=== PATIENT | male | born 1940 | race Caucasian/White ===

== ENCOUNTER 2016-06-26 08:34 | Day surgery (SDC) | payer MEDICARE, MEDICAID ==
[~2016-06-26] VITALS: Ht 157.5 cm; Wt 72.0 kg
[~2016-06-26 08:34] MED LIST: ALPR0.254 PO; ATEN25TA PO; CAPE500T24 PO; ENOX30SY4 SQ; HYDR-3144 PO; HYDR12.53 PO; LISI-468 PO; LISI40TA PO; MEGE400O2 PO; MERO1PIG IV; MIDO5TAB PO; ONDA4SOL2 PO; ONDA8TAB9 PO; OXYC1TAB7 PO; OXYC5SOL8 PO; PANT40TA3 PO; PREG75CA PO; PROC10TA78 PO; PROM25TA10 PO; RIVA15TA PO; TRAZ50TA18 PO; VANC1VIA3 IV; Vancomycin Per Pharmacy MC
[2016-06-26] MEDS ORDERED: RIVA20TA PO (09:28)
[2016-06-26] MEDS ORDERED: HYDR-3144 PO (09:37)
[2016-06-26] MEDS ORDERED: TAMS0.4C2 PO (09:37)
[2016-06-26] MEDS ORDERED: ALPR0.254 PO (09:37)
[2016-06-26 09:43] VITALS: BP 133/86
[2016-06-26] MEDS ORDERED: LACTATED RINGERS 1,000 ML IV SCH ×2 (10:02→11:40)
[2016-06-26] MEDS ORDERED: FENTANYL PF 250 MCG/5ML ONE (10:48)
[2016-06-26] MEDS ORDERED: ONDANSETRON 2MG/ML, 2ML ONE (10:59)
[2016-06-26] MEDS ORDERED: PROPOFOL 10 MG/ML, 20ML ONE (10:59)
[2016-06-26] MEDS ORDERED: PHENYLEPHRINE 10 MG/ML ONE (10:59)
[2016-06-26] MEDS ORDERED: SUCCINYLCHOLINE 20 MG/ML, 10ML ONE (10:59)
[2016-06-26] MEDS ORDERED: DEXAMETHASONE 4 MG/ML, 1ML ONE (10:59)
[2016-06-26] MEDS ORDERED: BUPIVACAINE/PF-EPI 0.25% 1:200K ONE (11:23)
[2016-06-26] MEDS ORDERED: PROMETHAZINE 25 MG/ML, 1ML IV PRN (11:30)
[2016-06-26] MEDS ORDERED: ONDANSETRON 2MG/ML, 2ML IVPush PRN ×2 (11:30→12:00)
[2016-06-26] MEDS ORDERED: LABETALOL 5MG/ML, 20ML IV PRN (11:30)
[2016-06-26] MEDS ORDERED: HYDROmorphone 1 MG/ML, 1ML IV PRN (11:30)
[2016-06-26] MEDS ORDERED: OXYcodone 5 MG/5 ML ORAL.SOL UDC PO PRN ×2 (11:30→12:00)
[2016-06-26] MEDS ORDERED: ALBUTEROL/IPRATROPIUM 2.5MG/0.5MG, 3 ML NPPB PRN (11:30)
[2016-06-26] MEDS ORDERED: hydrALAzine 20 MG/ML, 1ML IV PRN (11:30)
[2016-06-26] MEDS ORDERED: ACETAMINOPHEN 325 MG TABLET PO PRN (11:30)
[2016-06-26] MEDS ORDERED: MIDAZOLAM 1 MG/ML, 2ML IV PRN (11:30)
[2016-06-26] MEDS ORDERED: MEPERIDINE/PF 25MG/0.5ML IVPush PRN (11:30)
[2016-06-26] MEDS ORDERED: FENTANYL PF 100 MCG/2ML IV PRN (11:30)
[2016-06-26] MEDS ORDERED: NEOSPORIN OINT, 15GM ONE (11:35)
[2016-06-26] MEDS ORDERED: DIPHENHYDRAMINE 50 MG/ML, 1ML IVPush PRN (12:00)
[2016-06-26] MEDS ORDERED: HYDROmorphone 2 MG/ML, 1ML IVPush PRN (12:00)
[2016-06-26] MEDS ORDERED: ACETAMINOPHEN 650 MG/20.3 ML UDC ONE (12:07)
[2016-06-26] MEDS ORDERED: OXYcodone 5 MG/5 ML ORAL.SOL UDC ONE (12:08)
== END 2016-06-26 14:00 | disposition home or self-care (01) ==
LOC: OUT 08:34
PROVIDERS: ATTEND Surgery
DX: T81.89XA Other complications of procedures, not elsewhere classified, initial encounter (principal); Z93.2 Ileostomy status; Z85.048 Personal history of other malignant neoplasm of rectum, rectosigmoid junction, and anus; I10 Essential (primary) hypertension; Z87.891 Personal history of nicotine dependence; Z90.49 Acquired absence of other specified parts of digestive tract; Y83.8 Other surgical procedures as the cause of abnormal reaction of the patient, or of later complication, without mention of misadventure at the time of the procedure
CPT/HCPCS: 13160; J0330; J1100; J2370; J2405; J2704; J3010; J7120

== ENCOUNTER 2016-07-06 23:21 | Emergency (ER) | payer MEDICARE, MEDICAID ==
[~2016-07-06] VITALS: Ht 162.6 cm; Wt 71.9 kg
[~2016-07-06 23:21] MED LIST changes: +RIVA20TA PO; +TAMS0.4C2 PO
[2016-07-07] MEDS ORDERED: ONDANSETRON 2MG/ML, 2ML IVPush ONE (00:30)
[2016-07-07] MEDS ORDERED: OMNIPAQUE 350 MG/ML, 100ML BOTTLE ONE (00:30)
[2016-07-07] MEDS ORDERED: MORPHINE SULFATE 4 MG/ML, 1ML IVPush PRN (00:30)
[2016-07-07] MEDS ORDERED: MORPHINE SULFATE 4 MG/ML, 1ML ONE (00:33)
[2016-07-07] MEDS ORDERED: ONDANSETRON 2MG/ML, 2ML ONE (00:33)
[2016-07-07 00:45] LABS: BLOOD UREA NITROGEN 14 mg/dL (7-18)
[2016-07-07 00:49] LABS: IS PT STATUS REG ER OR PRE ER? YES
[2016-07-07] MEDS ORDERED: OXYC1TAB7 PO (01:42)
[2016-07-07 03:11] VITALS: BP 152/64
== END 2016-07-07 03:14 | disposition home or self-care (01) ==
LOC: ED 23:59
DX: R07.89 Other chest pain (principal); C78.5 Secondary malignant neoplasm of large intestine and rectum; Z85.118 Personal history of other malignant neoplasm of bronchus and lung
CPT/HCPCS: 36415; 71275; 80048; 82040; 84484; 85025; 93005; 96374; 96375; 99285; J2405

== ENCOUNTER 2016-11-19 07:30 | Emergency (ER) | payer MEDICARE, MEDICAID ==
[~2016-11-19] VITALS: Ht 152.4 cm; Wt 74.1 kg
[~2016-11-19 07:30] MED LIST changes: -HYDR-3144 PO; +HYDR-3245 PO
[2016-11-19] MEDS ORDERED: ALBUTEROL/IPRATROPIUM 2.5MG/0.5MG, 3 ML NPPB ONE (08:30)
[2016-11-19] MEDS ORDERED: ALBUTEROL/IPRATROPIUM 2.5MG/0.5MG, 3 ML ONE (08:44)
[2016-11-19 09:02] LABS: BLOOD UREA NITROGEN 29 mg/dL (7-18)
[2016-11-19 09:03] LABS: HEMOGLOBIN 14.3 g/dL (13.7-18.0); WHITE BLOOD COUNT 19.4 x10^3/uL (3.4-10)
[2016-11-19 09:16] VITALS: BP 122/90
[2016-11-19 09:24] LABS: DIFF TOTAL CELLS COUNTED 100 CELL DIFF
[2016-11-19 09:26] LABS: ANISOCYTOSIS 1+; VERIFY COUNTS? YES
== END 2016-11-19 10:04 | disposition home or self-care (01) ==
LOC: ED 09:43
DX: J20.8 Acute bronchitis due to other specified organisms (principal); C34.90 Malignant neoplasm of unspecified part of unspecified bronchus or lung; C18.9 Malignant neoplasm of colon, unspecified; Z79.01 Long term (current) use of anticoagulants; Z85.048 Personal history of other malignant neoplasm of rectum, rectosigmoid junction, and anus; Z87.891 Personal history of nicotine dependence; Z92.21 Personal history of antineoplastic chemotherapy
CPT/HCPCS: 36415; 71020; 80048; 82040; 85025; 93005; 94640; 99285; J7512; J7620

== ENCOUNTER 2016-12-13 06:54 | Inpatient (IN) | payer MEDICARE, MEDICAID ==
[~2016-12-13] VITALS: Ht 165.1 cm; Wt 79.6 kg
[2016-12-13] MEDS ORDERED: SODIUM CHLORIDE 0.9% 1,000ML IVBOLUS ONE ×2 (07:30→09:30)
[2016-12-13] MEDS ORDERED: ALBUTEROL SULFATE 2.5 MG/3 ML NPPB ONE (07:30)
[2016-12-13] MEDS ORDERED: SODIUM CHLORIDE FLUSH 10ML SYR IVF ONE (07:30)
[2016-12-13] MEDS ORDERED: ALBUTEROL SULFATE 2.5 MG/3 ML ONE (07:41)
[2016-12-13 08:03] LABS: ASPARTATE AMINO TRANSFERASE 27 U/L (15-37); BLOOD UREA NITROGEN 13 mg/dL (7-18)
[2016-12-13 08:04] LABS: HEMATOCRIT 33.6 % (39.2-51.8); HEMOGLOBIN 11.2 g/dL (13.7-18.0); WHITE BLOOD COUNT 14.2 x10^3/uL (3.4-10)
[2016-12-13 08:09] LABS: IS PT STATUS REG ER OR PRE ER? YES
[2016-12-13] MEDS ORDERED: OMNIPAQUE 350 MG/ML, 100ML BOTTLE ONE (08:35)
[2016-12-13] MEDS ORDERED: PIPERACILLIN/TAZO/PMX 3.375GM 50 ML IV ONE (09:30)
[2016-12-13] MEDS ORDERED: VANCOMYCIN PER PHARMACY MC PRN (09:30)
[2016-12-13] MEDS ORDERED: PIPERACILLIN/TAZO/PMX 3.375GM 50 ML ONE (09:50)
[2016-12-13] MEDS ORDERED: VANCOMYCIN 1,200 MG in SODIUM CHLORIDE 0.9% 250 ML IV ONE (10:00)
[2016-12-13] MEDS ORDERED: PHARMACOKINETIC CONSULTATION MC ONE (10:00)
[2016-12-13] MEDS ORDERED: ALBUTEROL/IPRATROPIUM 2.5MG/0.5MG, 3 ML HHN SCH (11:30)
[2016-12-13] MEDS ORDERED: DOCUSATE 100 MG CAPSULE PO PRN (11:30)
[2016-12-13] MEDS ORDERED: ONDANSETRON ODT 4 MG PO PRN (11:30)
[2016-12-13] MEDS ORDERED: ALBUTEROL/IPRATROPIUM 2.5MG/0.5MG, 3 ML NPPB PRN (11:30)
[2016-12-13] MEDS ORDERED: DIPHENHYDRAMINE 25 MG CAPSULE PO PRN (11:30)
[2016-12-13 12:13] VITALS: BP 113/74
[2016-12-13] MEDS ORDERED: ALBUTEROL SULFATE 2.5 MG/3 ML NPPB PRN (13:00)
[2016-12-13] MEDS: SODIUM CHLORIDE 0.9% 1,000 ML IV SCH ×2 (13:29→22:49)
[2016-12-13] MEDS: ENOXAPARIN 40 MG/0.4 ML SQ SCH ×2 (13:29→13:35)
[2016-12-13 15:46] VITALS: BP 105/69
[2016-12-13] MEDS: PIPERACILLIN/TAZO/PMX 3.375GM 50 ML IVPB SCH ×2 (18:05→23:52)
[2016-12-13 20:00] VITALS: BP 100/66
[2016-12-13] MEDS: GUAIFENESIN/DM 200-20MG, 10ML UDC PO PRN (22:49)
[2016-12-13] MEDS: ACETAMINOPHEN 325 MG TABLET PO PRN (22:49)
[2016-12-14 01:16] VITALS: BP 99/63
[2016-12-14 05:26] LABS: BLOOD UREA NITROGEN 10 mg/dL (7-18)
[2016-12-14] MEDS: PIPERACILLIN/TAZO/PMX 3.375GM 50 ML IVPB SCH ×3 (06:19→19:45)
[2016-12-14] MEDS: SODIUM CHLORIDE 0.9% 1,000 ML IV SCH ×2 (06:19→19:46)
[2016-12-14] MEDS: GUAIFENESIN/DM 200-20MG, 10ML UDC PO PRN ×2 (06:21→23:53)
[2016-12-14 08:04] VITALS: BP 108/67
[2016-12-14] MEDS: ENOXAPARIN 40 MG/0.4 ML SQ SCH (08:35)
[2016-12-14] MEDS: TAMSULOSIN 0.4 MG CAP.ER.24H PO SCH (09:00)
[2016-12-14] MEDS: PREGABALIN 75 MG CAPSULE PO SCH (09:00)
[2016-12-14 16:00] VITALS: BP 101/64
[2016-12-14] MEDS: ACETAMINOPHEN 325 MG TABLET PO PRN (19:46)
[2016-12-14 20:17] VITALS: BP 94/60
[2016-12-15 00:11] VITALS: BP 96/62
[2016-12-15] MEDS: PIPERACILLIN/TAZO/PMX 3.375GM 50 ML IVPB SCH ×4 (03:13→23:24)
[2016-12-15] MEDS: SODIUM CHLORIDE 0.9% 1,000 ML IV SCH ×3 (03:13→11:28)
[2016-12-15 05:17] LABS: HEMATOCRIT 28.7 % (39.2-51.8); HEMOGLOBIN 9.7 g/dL (13.7-18.0); WHITE BLOOD COUNT 13.7 x10^3/uL (3.4-10)
[2016-12-15 05:31] LABS: BLOOD UREA NITROGEN 8 mg/dL (7-18)
[2016-12-15] MEDS: GUAIFENESIN/DM 200-20MG, 10ML UDC PO PRN ×2 (06:29→23:25)
[2016-12-15] MEDS: TAMSULOSIN 0.4 MG CAP.ER.24H PO SCH (07:52)
[2016-12-15] MEDS: PREGABALIN 75 MG CAPSULE PO SCH (07:52)
[2016-12-15 08:00] VITALS: BP 107/72
[2016-12-15] MEDS: ACETAMINOPHEN 325 MG TABLET PO PRN ×2 (08:04→14:16)
[2016-12-15 14:05] VITALS: BP 100/65
[2016-12-15] MEDS: ENOXAPARIN 40 MG/0.4 ML SQ SCH (14:16)
[2016-12-15] MEDS ORDERED: MORPHINE SULFATE 4 MG/ML, 1ML IVPush PRN (17:30)
[2016-12-15] MEDS ORDERED: LORazepam 2 MG/ML, 1ML IVPush PRN (17:30)
[2016-12-15] MEDS ORDERED: LORazepam 0.5MG TABLET PO PRN (17:30)
[2016-12-15 19:38] VITALS: BP 108/66
[2016-12-16 03:12] VITALS: BP 92/56
[2016-12-16] MEDS: ACETAMINOPHEN 325 MG TABLET PO PRN ×3 (03:17→23:42)
[2016-12-16 04:53] LABS: HEMATOCRIT 29.9 % (39.2-51.8)
[2016-12-16 05:04] LABS: BLOOD UREA NITROGEN 7 mg/dL (7-18)
[2016-12-16] MEDS: PIPERACILLIN/TAZO/PMX 3.375GM 50 ML IVPB SCH ×4 (06:05→23:29)
[2016-12-16 08:33] VITALS: BP 103/65
[2016-12-16] MEDS: TAMSULOSIN 0.4 MG CAP.ER.24H PO SCH (09:52)
[2016-12-16] MEDS: PREGABALIN 75 MG CAPSULE PO SCH (09:52)
[2016-12-16] MEDS: SODIUM CHLORIDE 0.9% 1,000 ML IV SCH (12:27)
[2016-12-16] MEDS: GUAIFENESIN/DM 200-20MG, 10ML UDC PO PRN ×2 (12:41→23:29)
[2016-12-16] MEDS: ENOXAPARIN 40 MG/0.4 ML SQ SCH (14:11)
[2016-12-16 14:12] VITALS: BP 93/57
[2016-12-16] MEDS ORDERED: DOCUSATE 100 MG CAPSULE PO PRN (18:30)
[2016-12-16] MEDS ORDERED: LORazepam 2 MG/ML, 1ML IVPush PRN (18:30)
[2016-12-16] MEDS ORDERED: DIPHENHYDRAMINE 25 MG CAPSULE PO PRN (18:30)
[2016-12-16] MEDS ORDERED: LORazepam 0.5MG TABLET PO PRN (18:30)
[2016-12-16 19:31] VITALS: BP 90/57
[2016-12-17 02:44] VITALS: BP 100/65
[2016-12-17] MEDS: PIPERACILLIN/TAZO/PMX 3.375GM 50 ML IVPB SCH ×2 (06:14→11:58)
[2016-12-17 07:13] VITALS: BP 90/54
[2016-12-17] MEDS ORDERED: PREG75CA PO (07:50)
[2016-12-17] MEDS ORDERED: GUAI5SYR PO (07:50)
[2016-12-17] MEDS ORDERED: TAMS0.4C2 PO (07:50)
[2016-12-17] MEDS ORDERED: RIVA20TA PO (07:50)
[2016-12-17] MEDS ORDERED: LEVO750T26 PO (07:50)
[2016-12-17] MEDS ORDERED: MAGNESIUM SULFATE PMX 2GM/50ML 50 ML IV ONE (08:00)
[2016-12-17] MEDS ORDERED: ALBUTEROL SULFATE 2.5 MG/3 ML NPPB PRN (08:00)
[2016-12-17] MEDS ORDERED: ALBU2.5V NPPB (08:05)
[2016-12-17] MEDS ORDERED: RIVAROXABAN 20 MG TABLET PO SCH (09:00)
[2016-12-17] MEDS: SODIUM CHLORIDE 0.9% 1,000 ML IV SCH (09:28)
[2016-12-17] MEDS: TAMSULOSIN 0.4 MG CAP.ER.24H PO SCH (09:28)
[2016-12-17] MEDS: PREGABALIN 75 MG CAPSULE PO SCH (09:28)
[2016-12-17] MEDS: ACETAMINOPHEN 325 MG TABLET PO PRN (09:35)
[2016-12-17] MEDS: GUAIFENESIN/DM 200-20MG, 10ML UDC PO PRN (09:35)
[2016-12-17 13:07] VITALS: BP 93/59
[2016-12-17 14:05] VITALS: BP 95/61
== END 2016-12-17 16:03 | disposition home or self-care (01) | DRG 871 ==
LOC: ED 08:15 → EDIP 09:47 → 5SO 12:13 → 3NW 12-15 12:28 → 5SO 12-15 16:10 → 3NW 12-15 17:11
PROVIDERS: ADMIT Hospitalist; ATTEND Hospitalist
DX: A41.9 Sepsis, unspecified organism (principal); J96.01 Acute respiratory failure with hypoxia; E43 Unspecified severe protein-calorie malnutrition; J18.1 Lobar pneumonia, unspecified organism; D68.69 Other thrombophilia; J98.11 Atelectasis; Z68.29 Body mass index [BMI] 29.0-29.9, adult; F10.21 Alcohol dependence, in remission; I10 Essential (primary) hypertension; I73.9 Peripheral vascular disease, unspecified; J98.09 Other diseases of bronchus, not elsewhere classified; Z51.5 Encounter for palliative care; Z83.3 Family history of diabetes mellitus; Z87.891 Personal history of nicotine dependence; Z93.3 Colostomy status; Z85.048 Personal history of other malignant neoplasm of rectum, rectosigmoid junction, and anus; Z85.118 Personal history of other malignant neoplasm of bronchus and lung
CPT/HCPCS: 36415; 71010; 71275; 80048; 80053; 81003; 83605; 83735; 83880; 84484; 85025; 85610; 87040; 93005; 94640; 96361; 96365; 96366; 96368; J1650; J2543; J3370; J7613; Q0162; Q9967; J3475; J7030; J7050